=== PATIENT | male | born 1940 | race Two or more races ===

== ENCOUNTER 2018-09-30 11:15 | Inpatient (IN) | payer MEDICAID ==
[~2018-09-30] VITALS: Ht 162.6 cm; Wt 63.7 kg
[2018-09-30 12:07] LABS: BASOPHIL % 0.4 % (0-2); PLATELET COUNT 377 x10^3mcL (130-400); RED CELL DISTRIBUTION WIDTH 14.3 % (11.5-14.5)
[2018-09-30 12:12] LABS: CALCIUM 8.8 mg/dL (8.5-10.1); CARBON DIOXIDE 23.8 mmol/L (21-32); CHLORIDE SERUM 101 mmol/L (98-107); GLUCOSE SERUM 126 mg/dL (74-106); POTASSIUM SERUM 4.6 mmol/L (3.5-5.1); SODIUM SERUM 137 mmol/L (136-145)
[2018-09-30 12:17] LABS: ALBUMIN 3.2 g/dL (3.4-5.0); ALKALINE PHOSPHATASE 140 U/L (46-116); ALT/SGPT 21 U/L (16-63); AST/SGOT 21 U/L (15-37); BILIRUBIN TOTAL 0.41 mg/dL (0.20-1.00); LIPASE 125 IU/L (73-393); TOTAL PROTEIN, SERUM 7.7 g/dL (6.4-8.2)
[2018-09-30] MEDS ORDERED: REGLAN10 M1 (13:40)
[2018-09-30] MEDS ORDERED: PROTONIX40 MG (13:41)
[2018-09-30 14:37] LABS: UA SPECIFIC GRAVITY 1.015 (1.005-1.035); microscopic required? YES; urine erythrocyte NEGATIVE (NEGATIVE)
[2018-09-30 16:54] LABS: MAGNESIUM 2.1 mg/dL (1.8-2.4); PHOSPHOROUS 3.3 mg/dL (2.5-4.9)
[2018-09-30 16:55] LABS: CHOLESTEROL/HDL RATIO 3.4
[2018-09-30 17:12] VITALS: BP 135/51
[2018-09-30 17:12] LABS: T3 TOTAL 0.89 ng/mL
[2018-09-30 17:16] LABS: FREE T4 1.15 ng/dL (0.76-1.46); FREE THYROXINE INDEX 2.8 ug/dL (1.4-4.5); T4(THYROXINE) 7.7 ug/dL (4.7-13.3)
[2018-09-30 17:19] VITALS: Ht 162.6 cm; Wt 63.7 kg
[2018-09-30 17:29] LABS: AMPHETAMINE QUAL UR NONE DETECTED (See below)
[2018-09-30 21:17] VITALS: BP 124/52
[2018-10-01 06:30] VITALS: BP 102/41
[2018-10-01 06:36] LABS: BASOPHIL % 0.2 % (0-2); PLATELET COUNT 227 x10^3mcL (130-400)
[2018-10-01 07:22] LABS: CALCIUM 8.1 mg/dL (8.5-10.1); CARBON DIOXIDE 24.9 mmol/L (21-32); CHLORIDE SERUM 105 mmol/L (98-107); CREATININE SERUM 1.9 mg/dL (0.7-1.3); GLUCOSE SERUM 91 mg/dL (74-106); MAGNESIUM 2.1 mg/dL (1.8-2.4); PHOSPHOROUS 3.5 mg/dL (2.5-4.9); SODIUM SERUM 137 mmol/L (136-145)
[2018-10-01 07:27] LABS: POTASSIUM SERUM 5.7 mmol/L (3.5-5.1)
[2018-10-01 07:31] LABS: RED CELL DISTRIBUTION WIDTH 14.7 % (11.5-14.5)
[2018-10-01 10:14] VITALS: BP 108/75
[2018-10-01 12:02] LABS: CALCIUM 8.3 mg/dL (8.5-10.1); CARBON DIOXIDE 22.4 mmol/L (21-32); CHLORIDE SERUM 107 mmol/L (98-107); GLUCOSE SERUM 99 mg/dL (74-106); SODIUM SERUM 143 mmol/L (136-145)
[2018-10-01 18:37] VITALS: BP 117/50
[2018-10-01 20:52] VITALS: BP 117/69
[2018-10-02 05:35] VITALS: BP 112/46
[2018-10-02 06:30] LABS: BASOPHIL % 0.1 % (0-2); PLATELET COUNT 225 x10^3mcL (130-400)
[2018-10-02 06:42] LABS: RED CELL DISTRIBUTION WIDTH 14.9 % (11.5-14.5)
[2018-10-02 07:01] LABS: CALCIUM 7.8 mg/dL (8.5-10.1); CHLORIDE SERUM 106 mmol/L (98-107); CREATININE SERUM 1.6 mg/dL (0.7-1.3); GLUCOSE SERUM 79 mg/dL (74-106); MAGNESIUM 1.9 mg/dL (1.8-2.4); PHOSPHOROUS 3.4 mg/dL (2.5-4.9); POTASSIUM SERUM 3.5 mmol/L (3.5-5.1); SODIUM SERUM 137 mmol/L (136-145)
[2018-10-02 09:39] VITALS: BP 107/48
[2018-10-02 16:55] VITALS: BP 124/48
[2018-10-02 19:00] VITALS: BP 135/54
[2018-10-03 05:44] VITALS: BP 129/52
[2018-10-03 06:37] LABS: BASOPHIL % 0.6 % (0-2); PLATELET COUNT 256 x10^3mcL (130-400)
[2018-10-03 06:39] LABS: CARBON DIOXIDE 24.5 mmol/L (21-32); CHLORIDE SERUM 109 mmol/L (98-107); CREATININE SERUM 1.7 mg/dL (0.7-1.3); GLUCOSE SERUM 86 mg/dL (74-106); MAGNESIUM 1.8 mg/dL (1.8-2.4); PHOSPHOROUS 3.5 mg/dL (2.5-4.9); POTASSIUM SERUM 3.9 mmol/L (3.5-5.1); SODIUM SERUM 142 mmol/L (136-145)
[2018-10-03 06:44] LABS: RED CELL DISTRIBUTION WIDTH 15.1 % (11.5-14.5)
[2018-10-03 10:00] VITALS: BP 138/48
[2018-10-03 16:45] VITALS: BP 146/59
[2018-10-03 21:13] VITALS: BP 144/52
[2018-10-04 05:26] VITALS: BP 134/58
[2018-10-04 06:13] LABS: BASOPHIL % 0.3 % (0-2); PLATELET COUNT 286 x10^3mcL (130-400)
[2018-10-04 06:17] LABS: CALCIUM 8.2 mg/dL (8.5-10.1); CARBON DIOXIDE 23.8 mmol/L (21-32); CHLORIDE SERUM 110 mmol/L (98-107); CREATININE SERUM 1.5 mg/dL (0.7-1.3); GLUCOSE SERUM 90 mg/dL (74-106); MAGNESIUM 1.7 mg/dL (1.8-2.4); PHOSPHOROUS 3.1 mg/dL (2.5-4.9); POTASSIUM SERUM 4.1 mmol/L (3.5-5.1); SODIUM SERUM 143 mmol/L (136-145)
[2018-10-04 06:53] LABS: RED CELL DISTRIBUTION WIDTH 15.2 % (11.5-14.5)
[2018-10-04 09:35] VITALS: BP 134/58
[2018-10-04 09:37] VITALS: BP 157/109
[2018-10-04] MEDS ORDERED: COL100 PO (11:04)
== END 2018-10-04 18:45 | disposition home or self-care (01) | DRG 240 ==
LOC: ED 11:15 → MU 15:24
PROVIDERS: Emergency Medicine; Family Medicine; Internal Medicine; ADMIT Internal Medicine
PROC: 0DB68ZX Excision of Stomach, Via Natural or Artificial Opening Endoscopic, Diagnostic (ICD-10-PCS; principal; 2018-10-02 07:15)
DX: C16.3 Malignant neoplasm of pyloric antrum (principal); N17.0 Acute kidney failure with tubular necrosis; E87.5 Hyperkalemia; E44.1 Mild protein-calorie malnutrition; D64.9 Anemia, unspecified; Z68.24 Body mass index [BMI] 24.0-24.9, adult
CPT/HCPCS: 43235; 82962; 83880; 84439; 88344; 88361; C9113; J1200; J1610; J2250; J2310; J2405; J3010; J3490; J7030; J8597; Q0092; Q9966